=== PATIENT | female | born 1960 | race African-American/Black ===

== ENCOUNTER 2019-11-01 00:30 | Emergency (ER) | payer MEDICARE, SELFPAY ==
[2019-11-01] VITALS (8 sets, daily range): BP systolic 138–171; BP diastolic 77–93; PULSE 68–78; RESP 13–70; TEMP 36.7; O2SAT 94–100
--- NOTE | ~2019-11-01 | CT_ITS ---
EXAMINATION: CTA chest PE protocol DATE: 11/01/2019 01:13 INDICATION: Chest pain radiating to the back. TECHNIQUE: Computed tomography angiography (CTA) of the chest was performed with 100 mL Omnipaque-350 intravenous contrast timed to evaluate the pulmonary arteries. Coronal maximum intensity projection 3D-reconstructions were created by the technologist. Automated exposure control and iterative reconst ruction technique were employed. The dose-length product was 284.24 mGy-cm. COMPARISON: Chest CT 07/03/2013 FINDINGS: The lungs demonstrate mild atelectasis. No pleural effusion. Cardiomegaly is noted. No jerson cardial effusion. There is no pulmonary embolus. There are cysts in the liver measuring up to 4.0 cm. There is a 6.0 cm cyst in left kidney. There is mild thoracic spondylosis. IMPRESSION: 1. No pulmonary embolus. Reviewed, dictated and finalized at location A. IMPRESSION: 1. No pulmonary embolus.
--- NOTE | 2019-11-01 00:42 | ECG_ITS ---
Measurements Intervals [place] Rate: 75 P: 36 MS: 165 QRS: -19 QRSD: 110 T: 2 QT: 404 QTc: 453 Interpretive Statements SINUS RHYTHM VOLTAGE CRITERIA FOR LVH BORDERLINE ST-T WAVE ABNORMALITY- ANTEROLAT/INF LEADS BASELINE ARTIFACT- II, III, AVR, AVL, AVF BORDERLINE ECG Electronically Signed On 11-01-2019 7:00:10 CDT by Erick Emery D.O.
--- NOTE | 2019-11-01 00:53 | ED.CHESTPAIN ---
HPI - Chest Pain General Chief Complaint: Chest Pain Stated Complaint: CP, BACK, BREAST & LEG PAIN. Time Seen by Provider: 11/01/19 00:32 History of Present Illness HPI narrative: Right upper back pain radiating into the chest for the past few days. Worse with moving and taking a deep breath. Associated with SOB, and left calf pain. 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 She is no longer on anticoagulation. She saw her PCP today, but reports no testing done. Related Data Allergies Allergy/AdvReac Type Severity Reaction Status Date / Time tramadol AdvReac Other Verified 11/01/19 03:08 Review of Systems Review of Systems: All systems reviewed & are unremarkable except as noted in HPI and below Constitutional: Constitutional: Denies fever(s) Cardiovascular: Cardiovascular: Reports chest pain Respiratory: Respiratory: Reports dyspnea Gastrointestinal: Gastrointestinal: Denies nausea PMFSH Past Medical History Medical History (Updated 11/01/19 @ 03:15 by Harris Myers MD) DVT (deep venous thrombosis) Pulmonary embolism Exam Const: General: healthy appearing, no acute distress and alert Orientation/consciousness: patient oriented x3 HENMT: Head: normal to inspection Neck: Neck: normal visual inspection and no lymphadenopathy Chest: Chest palpation & inspection: tenderness Resp: Effort & Inspection: normal respiratory effort Auscultation: clear to auscultation bilaterally, no rales, no rhonchi and no wheezes Cardio: Jugular venous distension: no JVD Rate: regular rate Rhythm: regular rhythm Heart sounds: no murmurs GI: Inspection: non-distended GI Palp: Yes Soft to palpation and No Tenderness to palpation present (GI) Skin: General skin exam: normal color Neuro: General: patient oriented x3 and moves all extremities Speech: normal speech Extrem: General: no edema Psych: Appearance: well kempt Affect: normal affect Course Vital Signs Vital signs: Vital Signs Temperature 36.7 C 11/01/19 00:35 Pulse Rate 77 11/01/19 00:35 Respiratory Rate 70 H 11/01/19 00:35 Blood Pressure 171/93 H 11/01/19 00:35 Pulse Oximetry 95 11/01/19 00:35 Temperature 36.7 C 11/01/19 00:35 Pulse Rate 70 11/01/19 01:26 Respiratory Rate 13 11/01/19 01:26 Blood Pressure 138/82 11/01/19 01:26 Pulse Oximetry 98 11/01/19 01:26 MDM - Chest Pain MDM Narrative Medical decision making narrative: CTA negative. Cardiac work-up unrevealing. Appointment made for doppler in the morning. Medical Records Data Attestation: I reviewed the patient's medical records. Lab Data Attestation: I reviewed the patient's lab results. Result diagrams: 11/01/19 00:52 11/01/19 01:04 Labs: Lab Results 11/01/19 11/01/19 11/01/19 Range/Units 00:52 00:52 00:52 WBC 6.2 (4.5-10.0) K/mm3 RBC 3.52 L (4.2-5.4) M/mm3 Hgb 10.9 L (12.0-15.0) g/dL Hct 32.5 L (37.0-47.0) % MCV 92.3 (80-100) fl MCH 31.0 (26-34) pg MCHC 33.5 (32-36) g/dl RDW 12.8 (11.5-14.5) % Plt Count 247 (150-375) k/mm3 MPV 9.2 (7.4-10.4) fl Immature Gran % (Auto) 0.2 (0-0.5) % Neut % (Auto) 39.9 L (45.5-73.1) % Lymph % (Auto) 50.2 H (18.3-44.2) % Kin[place] % (Auto) 8.1 (2.6-8.5) % Eos % (Auto) 1.0 (0-4.4) % Baso % (Auto) 0.6 (0.2-1.2) % Lymph # (Auto) 3.11 (0.9-3.2) K/mm3 [place] # (Auto) 0.5 (0.1-0.6) K/mm3 Eos # (Auto) 0.1 (0-0.3) K/mm3 Baso # (Auto) 0.0 (0.0-0.1) K/mm3 Abs Immat Gran (auto) 0.01 (0.00-0.031) K/mm3 Absolute Neuts (auto) 2.5 (1.3-6.7) K/mm3 Absolute Nucleated RBC 0.0 (0.0-0.012) K/mm3 Nucleated RBC % 0.0 (0.0-0.2) % PT 11.7 (11.1-14.7) Seconds INR 0.9 APTT 35.2 (22.3-36.8) SECONDS Sodium 139 (137-145) mmol/L Potassium 2.9 L (3.4-5.0) mmol/L Chloride 103 (98-107) mmol/L Carbon Dioxide 30 (22-30) mmol/L BUN 19 H (7-17) mg/dL
[2019-11-01 01:00] LABS: Basophils Percent Auto 0.6 % (0.2-1.2); Eosinophils Absolute Auto 0.1 K/mm3 (0-0.3); Hematocrit 32.5 % (37.0-47.0); Hemoglobin 10.9 g/dL (12.0-15.0); Immature Granulocyte Absolute 0.01 K/mm3 (0.00-0.031); Immature Granulocyte Percent A 0.2 % (0-0.5); Lymphocytes Absolute Auto 3.11 K/mm3 (0.9-3.2); Lymphocytes Percent Auto 50.2 % (18.3-44.2); Mean Corpuscular HGB Conc 33.5 g/dl (32-36); Mean Corpuscular Volume 92.3 fl (80-100); Mean Platelet Volume 9.2 fl (7.4-10.4); Monocytes Absolute Auto 0.5 K/mm3 (0.1-0.6); Monocytes Percent Auto 8.1 % (2.6-8.5); Neutrophils Absolute Auto 2.5 K/mm3 (1.3-6.7); Neutrophils Percent Auto 39.9 % (45.5-73.1); Platelet Count Result 247 k/mm3 (150-375); Red Blood Count 3.52 M/mm3 (4.2-5.4); Red Cell Distribution Width 12.8 % (11.5-14.5); White Blood Count 6.2 K/mm3 (4.5-10.0)
[2019-11-01 01:07] LABS: Estimated Glomerular Filt Rate > 60
[2019-11-01 01:09] LABS: INR 0.9; Prothrombin Time 11.7 Seconds (11.1-14.7)
[2019-11-01 01:10] LABS: Partial Thromboplastin Time 35.2 SECONDS (22.3-36.8)
[2019-11-01 01:16] LABS: Blood Urea Nitrogen 19 mg/dL (7-17); Calcium 9.2 mg/dL (8.4-10.2); Carbon Dioxide 30 mmol/L (22-30); Chloride 103 mmol/L (98-107); Estimated Glomerular Filt Rate > 60; Glucose 106 mg/dL (65-105); Potassium 2.9 mmol/L (3.4-5.0); Sodium 139 mmol/L (137-145)
[2019-11-01] MEDS: MORPHINE SULFATE 2 MG/ML INJ IV PUSH (01:26)
[2019-11-01 01:27] LABS: Troponin I < 0.012 ng/mL (0.000-0.034)
== END 2019-11-01 03:15 | disposition home or self-care (01) ==
PROVIDERS: Emergency Provider Emergency Medicine; PCP Internal Medicine
DX: R07.9 Chest pain, unspecified (principal); S29.012A Strain of muscle and tendon of back wall of thorax, initial encounter; M79.605 Pain in left leg; Z86.718 Personal history of other venous thrombosis and embolism
CPT/HCPCS: 36415; 71275; 80048; 84484; 85025; 85610; 85730; 93005; 93971; 96374; 99284; A9270; J2270; Q9967

== ENCOUNTER 2019-11-01 07:26 | Outpatient (CLI) | payer MEDICARE, SELFPAY ==
--- NOTE | ~2019-11-01 | US_ITS ---
EXAMINATION: US venous doppler [facility] DATE: 11/01/2019 07:59 INDICATION: Left lower limb pain TECHNIQUE: Solomon scale images without and with compression and Doppler images of the left lower extrem ity veins were obtained. COMPARISON: 12/31/2006 FINDINGS: The left common femoral vein, profunda femoral vein, femoral vein, popliteal vein, peroneal trunk, posterior tibial veins, and greater saphenous vein are patent. IMPRESSION: 1. Patent left lower extremity veins. No evidence of deep venous thrombosis. Reviewed, dictated and finalized at location A.
== END 2019-11-01 07:27 | disposition home or self-care (01) ==
LOC: ANHIMG 07:32
PROVIDERS: PCP Internal Medicine; Visit Provider Internal Medicine
DX: M79.89 Other specified soft tissue disorders (principal)
CPT/HCPCS: 93971

== ENCOUNTER 2020-01-13 11:07 | Emergency (ER) | payer MEDICARE, SELFPAY ==
--- NOTE | ~2020-01-13 | XR_ITS ---
EXAMINATION: XR chest 2V DATE: 01/13/2020 12:36 INDICATION: Left chest pain. TECHNIQUE: Frontal and lateral views of the chest were obtained. COMPARISON: Chest 2 views 07/03/2013 FINDINGS: The chest demonstrates clear lungs without pneumonia, pleural effusion, or pneumothorax. Th e heart size is normal. IMPRESSION: 1. No acute cardiopulmonary disease. Reviewed, dictated and finalized at location B.
--- NOTE | ~2020-01-13 | CT_ITS ---
EXAMINATION: CTA chest abdomen pelvis DATE: 01/13/2020 16:28 INDICATION: Left chest pain. Left flank pain. TECHNIQUE: Computed tomographic angiography (CTA) of the chest, abdomen, and pelvis was performed wit h 100 mL Omnipaque-350 intravenous contrast. Automated exposure control and iterative reconstruction technique were employed. The dose-length product was 619.09 mGy-cm. Maximum intensity projection 3D-r econstructions of the aorta and other arteries were constructed by the technologist on a separate wor kstation. COMPARISON: Chest CT 11/01/2019, CT abdomen and pelvis 07/20/2009 FINDINGS: CHEST CTA: The lungs demonstrate mild dependent atelectasis. No pleural effusion. There are nodules in the thyro id measuring up to 9 mm, likely not clinically significant. Cardiomegaly is noted. No pericardial eff usion. There is no pulmonary embolus. Thoracic aorta is normal. ABDOMEN AND PELVIS CTA: There are cysts in the liver measuring up to 4.1 cm. There is a 1.4 cm hyperenhancing mass in right h epatic lobe, increased from 5 mm on 07/20/2009, likely benign. The gallbladder, spleen, pancreas, adren al glands, and right kidney are normal. There is a 5.5 cm cyst in left kidney. There are no dilated l oops of bowel. The appendix is normal. There are no pathologically enlarged lymph nodes. There is no free intraperitoneal fluid. Abdominal aorta is normal. There is no significant stenosis of the mesent larisa arteries, celiac axis, or renal arteries. There is mild lumbar spondylosis. IMPRESSION: 1. Normal aorta. Reviewed, dictated and finalized at location B. IMPRESSION: 1. Normal aorta.
[2020-01-13 11:19] VITALS: BP 141/115; PULSE 72; RESP 20; TEMP 36.9; O2SAT 99
--- NOTE | 2020-01-13 11:31 | ECG_ITS ---
Measurements Intervals [place] Rate: 67 P: 22 VA: 163 QRS: -16 QRSD: 106 T: -7 QT: 393 QTc: 415 Interpretive Statements SINUS RHYTHM VOLTAGE CRITERIA FOR LVH NONSPECIFIC T-WAVE ABNORMALITY- ANT/INF LEADS BASELINE ARTIFACT- II, AVR, V5 BORDERLINE ECG Electronically Signed On 01-13-2020 14:22:19 CDT by Erick Emery D.O.
[2020-01-13 11:38] VITALS: BP 183/106; PULSE 73; RESP 23; O2SAT 98
[2020-01-13 11:45] LABS: Basophils Absolute Auto 0.1 K/mm3 (0.0-0.1); Basophils Percent Auto 0.9 % (0.2-1.2); Eosinophils Absolute Auto 0.1 K/mm3 (0-0.3); Hematocrit 34.6 % (37.0-47.0); Hemoglobin 11.5 g/dL (12.0-15.0); Immature Granulocyte Absolute 0.02 K/mm3 (0.00-0.031); Immature Granulocyte Percent A 0.3 % (0-0.5); Lymphocytes Absolute Auto 2.59 K/mm3 (0.9-3.2); Lymphocytes Percent Auto 45.1 % (18.3-44.2); Mean Corpuscular HGB Conc 33.2 g/dl (32-36); Mean Corpuscular Hemoglobin 30.7 pg (26-34); Mean Corpuscular Volume 92.5 fl (80-100); Mean Platelet Volume 9.1 fl (7.4-10.4); Monocytes Absolute Auto 0.3 K/mm3 (0.1-0.6); Monocytes Percent Auto 5.9 % (2.6-8.5); Neutrophils Absolute Auto 2.7 K/mm3 (1.3-6.7); Neutrophils Percent Auto 46.8 % (45.5-73.1); Platelet Count Result 285 k/mm3 (150-375); Red Blood Count 3.74 M/mm3 (4.2-5.4); Red Cell Distribution Width 12.9 % (11.5-14.5); White Blood Count 5.7 K/mm3 (4.5-10.0)
[2020-01-13 11:58] LABS: Prothrombin Time 12.5 Seconds (11.1-14.7)
[2020-01-13 12:08] LABS: Troponin I < 0.012 ng/mL (0.000-0.034)
[2020-01-13 12:10] LABS: Anion Gap 8 mmol/L (8-16); Blood Urea Nitrogen 17 mg/dL (7-17); Calcium 9.2 mg/dL (8.4-10.2); Carbon Dioxide 25 mmol/L (22-30); Chloride 107 mmol/L (98-107); Estimated CRCL calculation 84 ml/min; Estimated Glomerular Filt Rate > 60; Glucose 110 mg/dL (65-105); Potassium 3.9 mmol/L (3.4-5.0); Sodium 140 mmol/L (137-145)
--- NOTE | 2020-01-13 12:50 | ED.CHESTPAIN ---
HPI - Chest Pain General Chief Complaint: Chest Pain Stated Complaint: chest pain Time Seen by Provider: 01/13/20 12:01 History of Present Illness HPI narrative: Severe pain in the left upper back and radiating into the left chest wall. Started while getting out of the shower. Sharp in quality. Worse with moving or taking a deep breath. She has never had this type of pain before. Related Data Allergies Allergy/AdvReac Type Severity Reaction Status Date / Time tramadol AdvReac Other Verified 01/13/20 11:33 Review of Systems Review of Systems: All systems reviewed & are unremarkable except as noted in HPI and below Constitutional: Constitutional: Denies chills and Denies fever(s) Cardiovascular: Cardiovascular: Reports chest pain Respiratory: Respiratory: Denies cough and Denies dyspnea Gastrointestinal: Gastrointestinal: Denies abdominal pain, Denies nausea and Denies vomiting Genitourinary: Genitourinary: Denies hematuria and Denies dysuria Musculoskeletal: Musculoskeletal: Reports back pain Neurologic: Denies dizziness and Denies weakness PMFSH Past Medical History Medical History DVT (deep venous thrombosis) Pulmonary embolism Social History Social History Gender identity (if verbalized by the patient): Female Exam Const: General: healthy appearing and alert Nutritional Appearance: well nourished Orientation/consciousness: patient oriented x3 Other: Tearful, in obvious discomfort and mildly distressed HENMT: Head: normal to inspection Chest: Chest palpation & inspection: tenderness rib (left lower) Resp: Effort & Inspection: tachypneic Auscultation: clear to auscultation bilaterally Cardio: Rate: regular rate Rhythm: regular rhythm GI: Other: Nontender Back/Spine/Pelvis: Back: no CVA tenderness Skin: General skin exam: normal color Neuro: General: patient oriented x3 and moves all extremities Speech: normal speech Extrem: General: normal to inspection and no edema Course Vital Signs Vital signs: Vital Signs Temperature 36.9 C 01/13/20 11:19 Pulse Rate 72 01/13/20 11:19 Respiratory Rate 20 01/13/20 11:19 Blood Pressure 141/115 H 01/13/20 11:19 Pulse Oximetry 99 01/13/20 11:19 Temperature 36.8 C 01/13/20 18:18 Pulse Rate 69 01/13/20 18:18 Respiratory Rate 19 01/13/20 18:18 Blood Pressure 152/104 H 01/13/20 18:18 Pulse Oximetry 98 01/13/20 18:18 MDM - Chest Pain MDM Narrative Medical decision making narrative: Pain seems musculoskeletal in nature. Not improving with medications. Not concerning for cardiac pain. Will need to rule out PE, pneumonia, kidney stone. All imaging negative. Medical Records Data Attestation: I reviewed the patient's medical records. Lab Data Attestation: I reviewed the patient's lab results. Result diagrams: 01/13/20 11:34 01/13/20 11:34 Labs: Lab Results 01/13/20 01/13/20 01/13/20 Range/Units 11:34 11:34 11:34 WBC 5.7 (4.5-10.0) K/mm3 RBC 3.74 L (4.2-5.4) M/mm3 Hgb 11.5 L (12.0-15.0) g/dL Hct 34.6 L (37.0-47.0) % MCV 92.5 (80-100) fl MCH 30.7 (26-34) pg MCHC 33.2 (32-36) g/dl RDW 12.9 (11.5-14.5) % Plt Count 285 (150-375) k/mm3 MPV 9.1 (7.4-10.4) fl Immature Gran % (Auto) 0.3 (0-0.5) % Neut % (Auto) 46.8 (45.5-73.1) % Lymph % (Auto) 45.1 H (18.3-44.2) % [place] % (Auto) 5.9 (2.6-8.5) % Eos % (Auto) 1.0 (0-4.4) % Baso % (Auto) 0.9 (0.2-1.2) % Lymph # (Auto) 2.59 (0.9-3.2) K/mm3 [place] # (Auto) 0.3 (0.1-0.6) K/mm3 Eos # (Auto) 0.1 (0-0.3) K/mm3 Baso # (Auto) 0.1 (0.0-0.1) K/mm3 Abs Immat Gran (auto) 0.02 (0.00-0.031) K/mm3 Absolute Neuts (auto) 2.7 (1.3-6.7) K/mm3 Absolute Nucleated RBC 0.0 (0.0-0.012) K/mm3 Nucleated RBC % 0.0 (0.0-0.2) % PT 12.
[2020-01-13] MEDS: MORPHINE SULFATE 2 MG/ML INJ IV PUSH (14:17)
[2020-01-13 14:55] LABS: Troponin I < 0.012 ng/mL (0.000-0.034)
[2020-01-13 15:13] VITALS: BP 155/84; PULSE 76; RESP 18; O2SAT 97
[2020-01-13 15:57] LABS: Add Urine Microscopic? NO; Appearance Urine Clear (Clear); Bilirubin Urine Negative (Negative); Blood Urine Negative (Negative); Color Urine Straw (Yellow); Glucose Urine UA Negative (Negative); Ketones Urine Negative (Negative); Leukocyte Esterase Ur Negative LEU/UL (Negative); Nitrate Urine Negative (Negative); Protein Urine Negative (Negative); Specific Grav Ur 1.011 (1.001-1.035); Urobilinogen Urine Negative mg/dL (<2.0)
[2020-01-13 16:56] VITALS: BP 157/86; PULSE 65; RESP 16; O2SAT 100
[2020-01-13 18:18] VITALS: BP 152/104; PULSE 69; RESP 19; TEMP 36.8; O2SAT 98
== END 2020-01-13 18:19 | disposition home or self-care (01) ==
PROVIDERS: Emergency Medicine; Emergency Provider Emergency Medicine; PCP Internal Medicine
DX: S29.011A Strain of muscle and tendon of front wall of thorax, initial encounter (principal); Z86.718 Personal history of other venous thrombosis and embolism; Z86.711 Personal history of pulmonary embolism; R94.31 Abnormal electrocardiogram [ECG] [EKG]; X58.XXXA Exposure to other specified factors, initial encounter
CPT/HCPCS: 36415; 71046; 71275; 74174; 80048; 81003; 84484; 85025; 85610; 85730; 93005; 96374; 96375; 99284; J2270; J3010; J3360; Q9967

== ENCOUNTER 2020-07-13 20:16 | Emergency (ER) | payer MEDICARE, SELFPAY ==
--- NOTE | ~2020-07-13 | XR_ITS ---
EXAMINATION: XR chest 2V DATE: 07/13/2020 21:10 INDICATION: Chest pain. TECHNIQUE: Frontal and lateral views of the chest were obtained. COMPARISON: Chest 2 views 01/13/2020 FINDINGS: The chest demonstrates clear lungs without pneumonia, pleural effusion, or pneumothorax. Th e heart size is normal. IMPRESSION: 1. No acute cardiopulmonary disease. Reviewed, dictated and finalized at location A. INIST GENERAL
--- NOTE | ~2020-07-13 | CT_ITS ---
EXAMINATION: CTA chest PE protocol DATE: 07/13/2020 22:20 INDICATION: Chest pain. TECHNIQUE: Computed tomography angiography (CTA) of the chest was performed with 100 mL Omnipaque-350 intravenous contrast timed to evaluate the pulmonary arteries. Coronal maximum intensity projection 3D-reconstructions were created by the technologist. Automated exposure control and iterative reconst ruction technique were employed. The dose-length product was 554.04 mGy-cm. COMPARISON: Chest CT 01/13/2020 FINDINGS: The lungs demonstrate mild atelectasis. No pleural effusion. Cardiomegaly is noted. No jerson cardial effusion. There is no pulmonary embolus. There are cysts in the liver measuring up to 4.4 cm. There is a small sliding hiatal hernia. There is a 6.2 cm cyst in left kidney. There is mild thoraci c spondylosis. IMPRESSION: 1. No pulmonary embolus. Sensitivity is mildly decreased by motion artifact. 2. Cardiomegaly. Reviewed, dictated and finalized at location A. NCIAL SERVICES REPRESENTATIVE
--- NOTE | 2020-07-13 20:22 | ECG_ITS ---
Measurements Intervals [place] Rate: 85 P: 25 MA: 154 QRS: -22 QRSD: 90 T: -7 QT: 304 QTc: 363 Interpretive Statements SINUS RHYTHM VOLTAGE CRITERIA FOR LVH BORDERLINE T WAVE ABNORMALITY- ANTEROLAT/INF LEADS BORDERLINE ECG Electronically Signed On 07-13-2020 21:20:13 FISHERMAN HELPER by Erick Emery D.O.
[2020-07-13 20:28] VITALS: BP 151/92; PULSE 92; RESP 18; TEMP 36.8; O2SAT 98
[2020-07-13 20:52] LABS: Basophils Percent Auto 0.5 % (0.2-1.2); Eosinophils Absolute Auto 0.1 K/mm3 (0-0.3); Eosinophils Percent Auto 1.1 % (0-4.4); Hemoglobin 11.9 g/dL (12.0-15.0); Immature Granulocyte Absolute 0.01 K/mm3 (0.00-0.031); Immature Granulocyte Percent A 0.2 % (0-0.5); Lymphocytes Absolute Auto 2.93 K/mm3 (0.9-3.2); Lymphocytes Percent Auto 45.4 % (18.3-44.2); Mean Corpuscular Hemoglobin 31.4 pg (26-34); Mean Corpuscular Volume 92.3 fl (80-100); Mean Platelet Volume 8.9 fl (7.4-10.4); Monocytes Absolute Auto 0.5 K/mm3 (0.1-0.6); Monocytes Percent Auto 7.6 % (2.6-8.5); Neutrophils Absolute Auto 2.9 K/mm3 (1.3-6.7); Neutrophils Percent Auto 45.2 % (45.5-73.1); Platelet Count Result 263 k/mm3 (150-375); Red Blood Count 3.79 M/mm3 (4.2-5.4); Red Cell Distribution Width 12.6 % (11.5-14.5); White Blood Count 6.5 K/mm3 (4.5-10.0)
[2020-07-13 21:01] LABS: INR 0.9; Prothrombin Time 12.6 Seconds (11.1-14.7)
[2020-07-13 21:02] LABS: Partial Thromboplastin Time 33.2 SECONDS (22.3-36.8)
[2020-07-13 21:04] LABS: Anion Gap 7 mmol/L (8-16); Blood Urea Nitrogen 25 mg/dL (7-17); Calcium 9.5 mg/dL (8.4-10.2); Carbon Dioxide 30 mmol/L (22-30); Chloride 105 mmol/L (98-107); Estimated CRCL calculation 75 ml/min; Estimated Glomerular Filt Rate > 60; Glucose 122 mg/dL (65-105); Potassium 3.1 mmol/L (3.4-5.0); Sodium 142 mmol/L (137-145)
[2020-07-13 21:16] LABS: Troponin I < 0.012 ng/mL (0.000-0.034)
--- NOTE | 2020-07-13 21:36 | ED.CHESTPAIN ---
HPI - Chest Pain General Chief Complaint: Chest Pain Stated Complaint: sharp lf cp radiates to arm and into left leg Time Seen by Provider: 07/13/20 21:27 Source: RN notes reviewed History of Present Illness HPI narrative: Patient presents emergency department from home for chest pain. Patient states pain began 2 days ago. The pain is located in the left side of the chest and is described as sharp and stabbing states that has been constant for the past 2 days and radiates down the left arm and at times into the left leg she states intermittent shortness of breath with the pain she denies any fevers or chills abdominal pain nausea vomiting or any other symptoms she states she last took Aleve this morning for the pain with minimal relief Related Data Home Medications Medication Instructions Recorded Confirmed carbamazepine mg PO 07/13/20 ibuprofen 07/13/20 losartan-hydrochlorothiazide tablet 07/13/20 metoprolol tartrate 07/13/20 rosuvastatin mg 07/13/20 Allergies Allergy/AdvReac Type Severity Reaction Status Date / Time tramadol AdvReac Other Verified 07/13/20 20:32 Review of Systems Review of Systems: Narrative: Gen.: Denies fevers or chills ENT: Denies congestion Respiratory: Reports intermittent shortness of breath CV: See HPI GI: Denies abdominal pain nausea, emesis or diarrhea Musculoskeletal: Denies back pain or muscle pain Neuro: Denies numbness, tingling, weakness or focal weakness Skin: Denies rash Except as documented, all other systems reviewed and negative [facility] Past Medical History Medical History (Updated 07/14/20 @ 02:11 by Benja Stein DO) DVT (deep venous thrombosis) Pulmonary embolism Social History Social History Gender identity (if verbalized by the patient): Female Sexual Orientation (if Verbalized by the Patient): Straight or Heterosexual Exam Narrative: Exam Narrative: APPEARANCE: No acute distress, nontoxic, resting in bed EYES: EOMI HEENT: Normocephalic, atraumatic, OMM RESPIRATORY: No respiratory distress Clear to auscultation bilaterally with no rhonchi wheezing or rales. CARDIOVASCULAR: Regular rate and rhythm without murmurs rubs or gallops. Chest: Tender outpatient left anterior chest wall pain increased with deep inspiration and movement of the left arm Back: No midline thoracic lumbar tenderness palpation tender palpation over left paravertebral muscles T2-6 corresponding region of chest pain pain increased with rotation of the torso movement of left arm ABDOMINAL: Soft, nontender, nondistended, no rebound or guarding MUSCULOSKELETAl: Moves all extremities. No clubbing, cyanosis or edema. NEURO: Awake and alert. Following commands, speech normal, no focal deficits SKIN:: Warm, dry. No rashes lesions or abrasions PSYCHIATRIC: Normal affect/mood, Course Course Emergency Course: Patient states pain is improved with medication Called and discussed with Dr. Irving for patient's primary care physician agrees with plan for a.m. 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 ultrasound but I will refrain from giving any blood thinners at this time secondary to AVM Discussed with patient results of workup and diagnosis. Discussed need for follow-up with primary care, proper use of medication, and reasons to return to the emergency department. Patient understands and agrees to current treatment plan Vital Signs Vital signs: Vital Signs Temperature 98.2 F 07/13/20 20:28 Pulse Rate 92 07/13/20 20:28 Respiratory Rate 18 07/13/20 20:28 Blood Pressure 151/92 H
[2020-07-13 22:03] VITALS: BP 162/84; PULSE 75; RESP 18; O2SAT 100
[2020-07-13 22:03] LABS: D Dimer 0.27 ug/mL (<0.48)
[2020-07-13] MEDS: KETOROLAC 30 MG/ML VIAL (*BKC) IV PUSH (22:49)
[2020-07-13 23:48] LABS: Troponin I < 0.012 ng/mL (0.000-0.034)
[2020-07-14] MEDS: HYDROcodone/acetaminophen (*CRX) 5-325 MG TABLET 1 TAB PO (00:47)
[2020-07-14 01:27] VITALS: BP 129/86; PULSE 75; RESP 16; TEMP 36.6; O2SAT 99
== END 2020-07-14 02:36 | disposition home or self-care (01) ==
PROVIDERS: Emergency Provider Emergency Medicine; PCP Internal Medicine
DX: R07.89 Other chest pain (principal); M79.662 Pain in left lower leg; Z86.718 Personal history of other venous thrombosis and embolism; Z86.711 Personal history of pulmonary embolism; I51.7 Cardiomegaly
CPT/HCPCS: 36415; 71046; 71275; 80048; 84484; 85025; 85380; 85610; 85730; 93005; 96374; 99284; A9270; J1885; Q9967

== ENCOUNTER 2020-07-14 07:23 | Outpatient (CLI) | payer MEDICARE, SELFPAY ==
--- NOTE | ~2020-07-14 | US_ITS ---
US venous doppler [facility] DATE: 07/14/2020 08:37 INDICATION: Left calf pain for 3 days TECHNIQUE: Real-time and color flow imaging and Doppler analysis of the veins of the left lower extre mity COMPARISON: 11/01/2019 venous duplex examination of left lower extremity FINDINGS: The greater saphenous vein is patent. There is spontaneous and phasic flow and normal augme ntation and color flow signal and normal compression of the deep veins of the left leg. IMPRESSION: Normal examination; no evidence of deep venous thrombosis of left lower extremity Reviewed, dictated and finalized at Location A. Reviewed, dictated and finalized at location A. S TECH IMPRESSION: Normal examination; no evidence of deep venous thrombosis of left l ower extremity
== END 2020-07-14 07:24 | disposition home or self-care (01) ==
PROVIDERS: PCP Internal Medicine; Visit Provider Internal Medicine
DX: M79.662 Pain in left lower leg (principal)
CPT/HCPCS: 93971

== ENCOUNTER 2020-08-28 14:11 | Outpatient (CLI) | payer MEDICARE, SELFPAY | END 2020-08-28 14:12 | disposition home or self-care (01) | LOC: ANHCOVIDVC 14:11 | PROVIDERS: PCP Internal Medicine | DX: Z23 Encounter for immunization (principal) | CPT/HCPCS: 0001A; 91300 ==

== ENCOUNTER 2020-09-18 14:17 | Outpatient (CLI) | payer MEDICARE, SELFPAY | END 2020-09-18 14:18 | disposition home or self-care (01) | LOC: ANHCOVIDVC 14:18 | PROVIDERS: PCP Internal Medicine | DX: Z23 Encounter for immunization (principal) | CPT/HCPCS: 0002A; 91300 ==

== ENCOUNTER 2021-08-02 00:38 | Day surgery (SDC) | payer MEDICARE, SELFPAY ==
[2021-06-10 15:24] VITALS: BMI 28.4
[2021-07-25 10:10] VITALS: BMI 28.4
[2021-08-02 10:11] VITALS: BP 132/76; PULSE 72; RESP 16; TEMP 37.3; O2SAT 100
[2021-08-02] MEDS: LACTATED RINGERS 1,000 ML 150 ML IV CONT (10:21)
--- NOTE | 2021-08-02 10:29 | WPDANESEPPF ---
Anes - Initial Pre Proc Eval Procedure: Operation Date: 08/02/21 11:00 Proposed Procedures p Screening Colonoscopy - Hubert Holliday MD Date/Time: 08/02/21 10:29 Surgeon: Hubert Holliday MD Pre Op Diagnosis: hx of colon polyps Patient Data Age: 60 Gender: F Height: 1.7 m Weight: 78.3 kg Last Vital Signs Temp 37.3 C 08/02/21 10:11 Pulse 72 08/02/21 10:11 Resp 16 08/02/21 10:11 BP 132/76 08/02/21 10:11 Pulse Ox 100 08/02/21 10:11 Allergies Allergy/AdvReac Type Severity Reaction Status Date / Time tramadol Allergy Intermediate Rash Verified 08/02/21 10:09 Home Medications Medication Instructions Recorded Confirmed Type hydrocodone-acetaminophen [[place]] 1 tablet PO Q6H PRN #10 tablet 11/01/19 08/02/21 Rx diazepam [Valium] 2 mg PO TID PRN #10 tablet 01/13/20 08/02/21 Rx carbamazepine 100 mg PO BID 07/13/20 08/02/21 History losartan-hydrochlorothiazide 1 tablet PO DAILY 07/13/20 08/02/21 History metoprolol tartrate 50 mg PO BID 07/13/20 08/02/21 History rosuvastatin 10 mg PO HS 07/13/20 08/02/21 History cyclobenzaprine 10 mg PO TID PRN #10 tablet 07/14/20 08/02/21 Rx ibuprofen [IBU] 600 mg PO Q6H PRN #20 tablet 07/14/20 08/02/21 Rx Patient hx anesthesia problems: none Family hx anesthesia problems: none Results Review: All pre-operative results and documents have been reviewed as part of the pre-operative evaluation. [facility] Past Medical History Medical History (Updated 08/02/21 @ 10:29 by Mitch Nguyen MD) DVT (deep venous thrombosis) History of CVA (cerebrovascular accident) HTN (hypertension) Hyperlipidemia Pulmonary embolism Surgical History Surgical History (Updated 08/02/21 @ 10:32 by Mitch Nguyen MD) H/O: hysterectomy Social History Social History Smoking status: Never smoker Alcohol intake: never Substance use: never Substance use type: does not use Living arrangements: alone Gender identity (if verbalized by the patient): Female Sexual Orientation (if Verbalized by the Patient): Straight or Heterosexual Spiritual care concerns: No Anes - Eval Final PreProcedure Day of Procedure 08/02/21 10:29 Patient weight: overweight Heart: regular rate and rhythm Lungs: clear to auscultation Airway: Mallampati scale class II Neurological: alert and oriented Last oral intake: >/= 8 hours ASA classification: III Emergent: no Anesthetic plan: proceed Anesthesia type and monitoring: general GIVS and standard monitoring Results Review: All pre-operative results and documents have been reviewed as part of the pre-operative evaluation. Informed Consent: The patient's anesthetic plan and its attendant risks and benefits were discussed with the patient/family/POA. Questions were solicited and answers provided to the satisfaction of the patient/family/POA.
--- NOTE | 2021-08-02 10:36 | P.CONGI_ITS ---
Assessment and Plan Assessment and plan (1) Encounter for screening colonoscopy: Code(s): Z12.11 - Encounter for screening for malignant neoplasm of colon Status: Acute Assessment and Plan: Patient presents for screening colonoscopy. Appears be at average risk for colon polyps. Follow-up will be determined based f GI Consult Note Consult date/time: 08/02/21 10:36 HPI: Megan Araujo is a 60 year old female Presents for screening colonoscopy. Patient reports that her current weight appetite bowel movements are normal. She denies abdominal pain. She has had no bleeding. She does report a benign hyperplastic polyp removed from the colon 5 years ago. Patient presents today for follow-up exam. Family history noncontributory. [facility] [place] Past Medical History Medical History (Updated 08/02/21 @ 10:38 by Hubert Holliday MD) DVT (deep venous thrombosis) History of CVA (cerebrovascular accident) HTN (hypertension) Hyperlipidemia Pulmonary embolism Surgical History Surgical History (Updated 08/02/21 @ 10:32 by Mitch Nguyen MD) H/O: hysterectomy Social History Social History Smoking status: Never smoker Alcohol intake: never Substance use: never Substance use type: does not use Living arrangements: alone Gender identity (if verbalized by the patient): Female Sexual Orientation (if Verbalized by the Patient): Straight or Heterosexual Spiritual care concerns: No Meds Home Medications and Allergies Home Medications Medication Instructions Recorded Confirmed Type hydrocodone-acetaminophen [[place]] 1 tablet PO Q6H PRN #10 tablet 11/01/19 08/02/21 Rx diazepam [Valium] 2 mg PO TID PRN #10 tablet 01/13/20 08/02/21 Rx carbamazepine 100 mg PO BID 07/13/20 08/02/21 History losartan-hydrochlorothiazide 1 tablet PO DAILY 07/13/20 08/02/21 History metoprolol tartrate 50 mg PO BID 07/13/20 08/02/21 History rosuvastatin 10 mg PO HS 07/13/20 08/02/21 History cyclobenzaprine 10 mg PO TID PRN #10 tablet 07/14/20 08/02/21 Rx ibuprofen [IBU] 600 mg PO Q6H PRN #20 tablet 02/27/21 03/18/22 Rx Allergies Allergy/AdvReac Type Severity Reaction Status Date / Time tramadol Allergy Intermediate Rash Verified 08/02/21 10:09 Vital Signs Vital Signs - 24 hr 08/02/21 10:11 Temperature 99.2 F Pulse Rate 72 Respiratory Rate 16 Blood Pressure 132/76 Pulse Oximetry 100 Exam Narrative: Physical exam reveals patient to be alert. HEENT exam is unremarkable. Patient is anicteric. Lungs are clear to auscultation and percussion. Heart is without murmur or extra sounds. Abdominal exam bowel sounds present soft nontender with no organomegaly. Digital external rectal exam normal.
[2021-08-02 11:35] VITALS: BP 115/71; PULSE 74; RESP 17; O2SAT 100
[2021-08-02 11:45] VITALS: BP 134/85; PULSE 60; RESP 19; O2SAT 100
[2021-08-02 11:55] VITALS: BP 128/86; PULSE 62; RESP 18; O2SAT 100
== END 2021-08-02 12:00 | disposition home or self-care (01) ==
PROVIDERS: PCP Internal Medicine; Visit Provider Internal Medicine Gastroenterology
PROC: 0DJD8ZZ Inspection of Lower Intestinal Tract, Via Natural or Artificial Opening Endoscopic (ICD-10-PCS; CPT 45378; principal; 2021-08-02 11:00)
DX: Z12.11 Encounter for screening for malignant neoplasm of colon (principal); K63.5 Polyp of colon; K64.8 Other hemorrhoids; Z86.718 Personal history of other venous thrombosis and embolism; Z86.73 Personal history of transient ischemic attack (TIA), and cerebral infarction without residual deficits; I10 Essential (primary) hypertension; E78.5 Hyperlipidemia, unspecified; Z86.711 Personal history of pulmonary embolism
CPT/HCPCS: 45385; 88305; J2704; J7120

== ENCOUNTER 2023-01-16 18:18 | Emergency (ER) | payer MEDICARE, SELFPAY ==
--- NOTE | ~2023-01-16 | XR_ITS ---
EXAMINATION: XR chest 1V portable DATE: 01/16/2023 20:19 INDICATION: Cough. Pneumonia. TECHNIQUE: A single frontal view of the chest was obtained. COMPARISON: Chest 2 views 07/13/2020 FINDINGS: There are airspace opacities in left lower lung zone. No pleural effusion or pneumothorax. The heart size is normal. IMPRESSION: 1. Airspace opacities in left lower lung zone, consistent with atelectasis versus pneumonia. Reviewed, dictated and finalized at location E. IMPRESSION: 1. Airspace opacities in left lower lung zone, consistent with atelectasis vers us pneumonia.
[2023-01-16 18:53] VITALS: BP 172/80; PULSE 100; RESP 19; TEMP 37.3; O2SAT 98
[2023-01-16 19:46] VITALS: BP 165/93
[2023-01-16 20:01] VITALS: BP 161/89
--- NOTE | 2023-01-16 20:09 | ECG_ITS ---
Measurements Intervals [place] Rate: 86 P: 32 ND: 167 QRS: -19 QRSD: 90 T: -16 QT: 394 QTc: 474 Interpretive Statements SINUS RHYTHM LEFT VENTRICULAR HYPERTROPHY BORDERLINE ST-T WAVE ABNORMALITY- ANT/INF LEADS BORDERLINE ECG COMPARED TO ECG 07/13/2020 20:25:25 NO SIGNIFICANT CHANGES Electronically Signed On 01-17-2023 7:55:36 CDT by Erick Emery D.O.
--- NOTE | 2023-01-16 20:37 | ED.GENADULT ---
HPI - General Adult General Chief complaint: Upper Respiratory Infection Stated complaint: cough Time Seen by Provider: 01/16/23 19:36 History of Present Illness HPI narrative: This is a 62-year-old presenting ED with cough. Patient developed a cough 2 weeks ago. That time she had no fever chills nausea vomiting diarrhea chest pain or difficulty breathing. However 2 days ago she got acutely worse. Now the cough is productive and she feels like she is having wheezing. She has had some posttussive emesis. She is still not having any fevers, chest pain difficulty breathing diarrhea. Related Data Home Medications Medication Instructions Recorded Confirmed carbamazepine 100 mg 100 mg PO BID 07/13/20 08/02/21 capsule,extended release [id number] losartan 50 mg-hydrochlorothiazide 1 tablet PO DAILY 07/13/20 08/02/21 12.5 mg tablet metoprolol tartrate 50 mg tablet 50 mg PO BID 07/13/20 08/02/21 rosuvastatin 10 mg tablet 10 mg PO HS 07/13/20 08/02/21 Allergies Allergy/AdvReac Type Severity Reaction Status Date / Time tramadol Allergy Intermediate Rash Verified 01/16/23 18:58 [facility] Past Medical History Medical History DVT (deep venous thrombosis) History of CVA (cerebrovascular accident) HTN (hypertension) Hyperlipidemia Pulmonary embolism Surgical History Surgical History H/O: hysterectomy Social History Social History Smoking status: Never smoker Alcohol intake: never Substance use: never Substance use type: does not use Living arrangements: alone Gender identity (if verbalized by the patient): Female Sexual Orientation (if Verbalized by the Patient): Straight or Heterosexual Spiritual care concerns: No Exam Narrative: APPEARANCE: patient appears uncomfortable Head: atraumatic. EYES: EOMI, NOSE: Atraumatic NECK: Trachea midline RESPIRATORY: cough, crackles in the left lower lobe, no increased rate of breathing, speaking full signs is CARDIOVASCULAR: RRR, no peripheral edema ABDOMINAL: Non-distended MUSCULOSKELETAl: No obvious deformities NEURO: Alert. Moving 4/4 extremities SKIN:: Warm, dry. Normal color PSYCHIATRIC: Normal affect Course Vital Signs Vital signs: Vital Signs Temperature 99.1 F 01/16/23 18:53 Pulse Rate 100 01/16/23 18:53 Respiratory Rate 19 01/16/23 18:53 Blood Pressure 172/80 H 01/16/23 18:53 Pulse Oximetry 98 01/16/23 18:53 Oxygen Delivery Room Air 01/16/23 18:53 Temperature 99.1 F 01/16/23 18:53 Pulse Rate 95 01/16/23 20:54 Respiratory Rate 16 01/16/23 20:54 Blood Pressure 161/89 H 01/16/23 20:01 Pulse Oximetry 98 01/16/23 20:54 Oxygen Delivery Room Air 01/16/23 19:26 Medical Decision Making MDM Narrative Medical decision making narrative: -Course: 62-year-old female presenting with 2 weeks of cough that has gotten acutely worse in last 2 days. Chest x-ray showed left lower lobe infiltrates, likely a secondary pneumonia from viral illness. No respiratory distress or oxygen requirements. Tolerating PO. Stable VS. Patient be treated with course of Augmentin and doxycycline. Discharged with return precautions. -DDX includes but is not limited to: Viral illness, pneumonia, bronchitis, -Co-morbidities complicating care: hypertension, hyperlipidemia, history of CVA -Social determinants of health: disabled due to CVA, lives alone -Independent interpretation of studies: CBC normal. Potassium 2.9. This will be repleted orally. Viral swabs negative. Chest x-ray showed left lower lobe pneumonia. Independent EKG interpretation: Rhythm [sinus], Rate [86], [place] -[normal], [place] -[normal], QRS [narrow], QTC [normal], T waves -[negative for concerning inversions], ST Segments - [Negative for concerning elevations] Final interpretations: normal sin
[2023-01-16] MEDS: IBUPROFEN 400 MG TABLET 800 MG PO (20:41)
[2023-01-16] MEDS: ACETAMINOPHEN 500 MG TABLET 1000 MG PO (20:41)
[2023-01-16] MEDS: guaiFENesin/DEXTROMETHORPHAN 10 ML UDC PO (20:41)
[2023-01-16] MEDS: SODIUM CHLORIDE 0.9% IV 1,000 ML 999 ML IV CONT (20:42)
[2023-01-16 20:53] LABS: Basophils Absolute Auto 0.1 K/mm3 (0.0-0.1); Basophils Percent Auto 0.6 % (0.2-1.2); Eosinophils Absolute Auto 0.2 K/mm3 (0-0.3); Hematocrit 33.5 % (37.0-47.0); Immature Granulocyte Absolute 0.03 K/mm3 (0.00-0.031); Immature Granulocyte Percent A 0.3 % (0-0.5); Lymphocytes Absolute Auto 2.62 K/mm3 (0.9-3.2); Lymphocytes Percent Auto 29.6 % (18.3-44.2); Mean Corpuscular HGB Conc 32.8 g/dl (32-36); Mean Corpuscular Volume 94.4 fl (80-100); Mean Platelet Volume 8.7 fl (7.4-10.4); Monocytes Absolute Auto 0.6 K/mm3 (0.1-0.6); Monocytes Percent Auto 6.9 % (2.6-8.5); Neutrophils Absolute Auto 5.4 K/mm3 (1.3-6.7); Neutrophils Percent Auto 60.6 % (45.5-73.1); Platelet Count Result 311 k/mm3 (150-375); Red Blood Count 3.55 M/mm3 (4.2-5.4); Red Cell Distribution Width 12.8 % (11.5-14.5); White Blood Count 8.9 K/mm3 (4.5-10.0)
[2023-01-16 20:54] VITALS: PULSE 95; RESP 16; O2SAT 98
[2023-01-16 21:01] LABS: Anion Gap 7 mmol/L (8-16); Blood Urea Nitrogen 15 mg/dL (7-17); Calcium 9.4 mg/dL (8.4-10.2); Carbon Dioxide 34 mmol/L (22-30); Chloride 100 mmol/L (98-107); Estimated CRCL calculation 72 ml/min; Estimated Glomerular Filt Rate > 60; Glucose 97 mg/dL (65-110); Potassium 2.9 mmol/L (3.4-5.0); Sodium 141 mmol/L (137-145)
[2023-01-16] MEDS: AMOXICILLIN/CLAVULANATE K 875-125 MG TAB 1 TABLET PO (21:19)
[2023-01-16] MEDS: DOXYCYCLINE HYCLATE 100 MG TABLET PO (21:19)
[2023-01-16] MEDS: ONDANSETRON INJ 4 MG/2 ML VIAL IV PUSH (21:19)
[2023-01-16] MEDS: BENZOCAINE/MENTHOL (*BKC) 18 EA LOZENGE 1 LOZENGE PO (21:19)
[2023-01-16 21:25] LABS: Influenza A QL RT-PCR Negative (Negative); Influenza B QL RT-PCR Negative (Negative); RSV RNA, RT-PCR Negative (Negative); SARS-CoV-2 RNA PCR Negative (Negative)
[2023-01-16] MEDS: POTASSIUM CHLORIDE 20 MEQ PACKET (FOR LIQUID) 40 MEQ PO (21:36)
[2023-01-16 22:04] VITALS: BP 153/76; PULSE 89; RESP 21; O2SAT 99
== END 2023-01-16 22:05 | disposition home or self-care (01) ==
PROVIDERS: Emergency Provider Emergency Medicine; PCP Internal Medicine
DX: J18.9 Pneumonia, unspecified organism (principal); Z20.822 Contact with and (suspected) exposure to COVID-19; I10 Essential (primary) hypertension; E78.5 Hyperlipidemia, unspecified; Z86.73 Personal history of transient ischemic attack (TIA), and cerebral infarction without residual deficits; Z86.718 Personal history of other venous thrombosis and embolism; Z86.711 Personal history of pulmonary embolism; Z90.710 Acquired absence of both cervix and uterus; R94.31 Abnormal electrocardiogram [ECG] [EKG]; I51.7 Cardiomegaly
CPT/HCPCS: 36415; 71045; 80048; 85025; 87637; 93005; 96361; 96374; 99284; A9270; J2405; J7030

== ENCOUNTER 2023-10-08 17:07 | Emergency (ER) | payer MEDICARE, SELFPAY ==
[2023-10-08 17:08] VITALS: BP 139/68; PULSE 80; RESP 18; TEMP 36.7; O2SAT 100
[2023-10-08 18:57] VITALS: BP 138/69; PULSE 70; RESP 16; O2SAT 98
--- NOTE | 2023-10-08 19:09 | ED.GENADULT ---
HPI - General Adult General Chief complaint: Unspecified Stated complaint: LOST MY VOICE Time Seen by Provider: 10/08/23 18:16 History of Present Illness HPI narrative: Patient is a 63-year-old female with history of hypertension, hyperlipidemia here with a hoarse voice, sore throat, ear pain. She states that symptoms began 3 days ago. She notes that she 1st started experiencing losing her voice. She began having some throat irritation, denies any throat swelling or difficulty swallowing or breathing. She has noted a subjective fever at home as well as a nonproductive cough, decreased appetite, bilateral ear pain worse on the right than the left. She denies any shortness of breath. He denies any history of cardiac disease. She denies any sick contacts. Related Data Home Medications Medication Instructions Recorded Confirmed carbamazepine 100 mg 100 mg PO BID 07/13/20 08/02/21 capsule,extended release [id number] losartan 50 mg-hydrochlorothiazide 1 tablet PO DAILY 07/13/20 08/02/21 12.5 mg tablet metoprolol tartrate 50 mg tablet 50 mg PO BID 07/13/20 08/02/21 rosuvastatin 10 mg tablet 10 mg PO HS 07/13/20 08/02/21 Allergies Allergy/AdvReac Type Severity Reaction Status Date / Time tramadol Allergy Intermediate Rash Verified 10/08/23 18:29 Review of Systems Review of Systems: All systems reviewed & are unremarkable except as noted in HPI and below PMFSH Past Medical History Medical History DVT (deep venous thrombosis) History of CVA (cerebrovascular accident) HTN (hypertension) Hyperlipidemia Pulmonary embolism Surgical History Surgical History H/O: hysterectomy Social History Social History Smoking status: Never smoker Alcohol intake: never Substance use: never Substance use type: does not use Living arrangements: alone Gender identity (if verbalized by the patient): Female Sexual Orientation (if Verbalized by the Patient): Straight or Heterosexual Spiritual care concerns: No Exam Narrative: GENERAL: Well-appearing, well-nourished, and in no acute distress. HEAD: Normocephalic, atraumatic. EYES: PERRLA and EOMI. ENT: Nares clear. Mucous membranes moist. No pharyngeal erythema or edema. No fullness underneath the tongue. No cervical lymphadenopathy or neck fullness. Normal range of motion of the neck. Bilateral ear canals erythematous without any TM erythema or bulging. No drainage. She does have tenderness with manipulation of the right pinna. CHEST: Clear to auscultation. No respiratory distress. HEART: Regular rate and rhythm. Normal peripheral pulses. ABDOMEN: Soft, nontender, nondistended. EXTREMITIES: Normal range of motion. No edema. SKIN: Warm, dry, no rash. NEURO: No focal deficits. Alert and oriented x3. PSYCH: Normal mood and affect. Course Course Emergency Course: Chart review performed, patient here with right ear pain and sore throat that began 3 days ago. Triage vitals normal. Last ED visit was in January of 2023, she was here with shortness of breath and diagnosed with pneumonia. Patient seen evaluated, nontoxic appearing, symptoms most consistent with a viral syndrome and likely laryngitis due to the former. She does appear to have possible otitis externa, will start her on ear drops. Given sore throat I did discuss possibility of symptomatic relief with steroids, risks and benefits discussed with patient, she would like to proceed with dose of steroids. Will do dose of Decadron here in the emergency department. Patient is advised to follow-up closely with her primary care doctor. At this point I did not believe that imaging or lab work would be of diagnostic assistance. The results of pertinent diagnostic studies and exam findings were discussed. The patient?s provisional diagnosis and plan
[2023-10-08 19:28] LABS: Strep Group A RT-PCR NOT DETECTED (Negative)
[2023-10-08 19:40] LABS: Influenza A QL RT-PCR Negative (Negative); Influenza B QL RT-PCR Negative (Negative); RSV RNA, RT-PCR Negative (Negative); SARS-CoV-2 RNA PCR Negative (Negative)
[2023-10-08] MEDS: dexAMETHasone SOD PHOS INJ 10 MG/ML 1 ML VIAL BY MOUTH (20:05)
[2023-10-08 20:14] VITALS: BP 134/78; PULSE 73; RESP 14; O2SAT 100
== END 2023-10-08 20:15 | disposition home or self-care (01) ==
PROVIDERS: Emergency Provider Student in an Organized Health Care Education/Training Program; PCP Internal Medicine
DX: B34.9 Viral infection, unspecified (principal); J04.0 Acute laryngitis; H60.503 Unspecified acute noninfective otitis externa, bilateral; Z20.822 Contact with and (suspected) exposure to COVID-19; I10 Essential (primary) hypertension; E78.5 Hyperlipidemia, unspecified; Z86.718 Personal history of other venous thrombosis and embolism; Z86.73 Personal history of transient ischemic attack (TIA), and cerebral infarction without residual deficits; Z86.711 Personal history of pulmonary embolism; Z90.710 Acquired absence of both cervix and uterus
CPT/HCPCS: 87637; 87651; 99283; J1100